=== PATIENT | female | born 1955 | race Caucasian/White ===

== ENCOUNTER 2016-07-19 21:00 | Observation (INO) | payer BC ==
[2016-07-19] MEDS ORDERED: ASPIRIN 81 MG CHEW PO STA (22:31)
[2016-07-19] MEDS ORDERED: NITROGLYCERIN OINT 1 INCH/GM PACKET TOPICAL STA (22:31)
--- NOTE | 2016-07-19 22:34 | ED ---
General Adult HPI - General Chief complaint: Chest Pain Stated complaint: SOB Time Seen by Provider: 07/19/16 21:25 Source: patient, RN notes reviewed Mode of arrival: wheelchair Limitations: no limitations - History of Present Illness Initial comments: This is a 60-year-old female who presents to the emergency department with past medical history significant for sarcoidosis and high cholesterol. Patient states yesterday she was moving a lot of furniture she woke up this morning with a heaviness on her chest with some radiation of the pain to both of her shoulders. Patient states there is no movement that she can do to make it worse per patient states she's very short of breath she feels as though she can only get half breath. Patient denies diaphoresis or nausea. Patient states in the mid afternoon the pain seemed to subside a little so she didn't want to come to the hospital but the pain is since gotten worse in the heaviness is worse. Patient denies any fever chills or cough. Patient states he feels as though her lungs are filled with fluid. Patient states that heaviness continues to persist at this time. - Related Data Home Medications Medication Instructions Recorded Confirmed Ascorbic Acid [Vitamin C] 1,000 mg PO DAILY 07/19/16 07/19/16 Atorvastatin Calcium [Lipitor] 10 mg PO DAILY 07/19/16 07/19/16 Calcium Polycarbophil [Fibercon] 625 mg PO DAILY 07/19/16 07/19/16 Cholecalciferol [Vitamin D3] 1,000 unit PO DAILY 07/19/16 07/19/16 Cyanocobalamin (Vitamin B-12) 1,000 mcg PO DAILY 07/19/16 07/19/16 [Vitamin B-12] Levothyroxine Sodium [Synthroid] 75 mcg PO DAILY 07/19/16 07/19/16 Multivitamins, Thera [Multivitamin 1 tab PO DAILY 07/19/16 07/19/16 (formulary)] Allergies Allergy/AdvReac Type Severity Reaction Status Date / Time No Known Allergies Allergy Verified 07/19/16 23:03 Review of Systems ROS Statement: Those systems with pertinent positive or pertinent negative responses have been documented in the HPI. ROS Other: All systems not noted in ROS Statement are negative. Past Medical History Past Medical History: Skin Disorder, Thyroid Disorder Additional Past Medical History / Comment(s): endocarditis 2010, CELLULITIS LT LEG 2012, sarcoidosis, History of Any Multi-Drug Resistant Organisms: None Reported Past Surgical History: Breast Surgery Additional Past Surgical History / Comment(s): 1995 BREAST REDUCTION. Past Anesthesia/Blood Transfusion Reactions: No Reported Reaction Past Psychological History: No Psychological Hx Reported Additional Psychological History / Comment(s): She relates that she is a lifelong nonsmoker no significant alcohol use is related. No significant travels. No experience. She denies animal exposures. She lives in [place] and [place]. The [place] home in which they stay is 2 spaces. The large space is rented mostly by [employer]. The patient herself has had no travel except to [place]. And is unaware of any ill contacts. Smoking Status: Never smoker Past Alcohol Use History: Occasional Past Drug Use History: None Reported - Past Family History Mother Family Medical History: Hypertension Father History Unknown: Yes Family Medical History: Diabetes Mellitus Additional Family Medical History / Comment(s): pre-diabetic 82 years old. General Exam - General Exam Comments Initial Comments: GENERAL: Patient is well-developed and well-nourished. Patient is nontoxic and well- hydrated and is in mild distress. ENT: Neck is soft and supple. No significant lymphadenopathy is noted. Oropharynx is clear. Moist mucous membranes. Neck has full range of motion without eliciting any pain. EYES: The sclera were anicteric and conjunctiva were pink and moist. Extraocular movements were intact and pupils were equal round and reactive to light. Eyelids were unremarkable. PULMONARY: Unlabored respirations. Good breath sounds bilaterally. No audible rales rhonchi or wheezing was noted. CARDIOVASCULAR: There is a regular rate and rhythm without any murmurs gallops or rubs. ABDOMEN: Soft and nontender with normal bowel sounds. No palpable organomegaly was noted. There is no palpable pulsatile mass. SKIN: Skin is clear with no lesions or rashes and otherwise unremarkable. NEUROLOGIC: Patient is alert and oriented x3. Cranial nerves II through XII are grossly intact. Motor and sensory are also intact. Normal speech, volume and content. Symmetrical smile. MUSCULOSKELETAL: Normal extremities with adequate strength and full range of motion. No lower extremity swelling or edema. No calf tenderness. LYMPHATICS: No significant lymphadenopathy is noted PSYCHIATRIC: Normal psychiatric evaluation. Normal interpersonal interactions appears functionally intact in deals appropriately with others. No signs of depression. No signs of anxiety. Limitations: no limitations Course Vital Signs 07/19/16 07/19/16 21:07 22:49 Temperature 99.7 F H Pulse Rate 87 83 Respiratory 16 18 Rate Blood Pressure 134/73 131/61 O2 Sat by Pulse 95 97 Oximetry Medical Decision Making - Medical Decision Making EKG shows normal sinus rhythm at 84 bpm TX interval is 150 QRS is 86 QT interval 380 QTC is 449. Patient's EKG shows no ST segment elevation or depression or T-wave abdomen is noted. Chest x-ray shows no acute abnormality Patient continues to have chest pain after aspirin and Nitropaste to start the patient on heparin because of the diagnosis of unstable angina. I spoke with Dr. Mccoy admitted the patient I wrote admitting orders. Continue the heparin and aspirin and Nitropaste on the floor. - Lab Data Result diagrams: 07/19/16 22:45 07/19/16 22:45 Lab Results 07/19/16 07/19/16 07/19/16 Range/Units 22:45 22:45 22:45 WBC 10.2 (3.8-10.6) k/uL RBC 4.11 (3.80-5.40) m/uL Hgb 13.8 (11.4-16.0) gm/dL Hct 38.5 (34.0-46.0) % MCV 93.8 (80.0-100.0) fL MCH 33.5 (25.0-35.0) pg MCHC 35.7 (31.0-37.0) g/dL RDW 12.9 (11.5-15.5) % Plt Count 240 (150-450) k/uL Neutrophils % 88 % Lymphocytes % 6 % Monocytes % 4 % Eosinophils % 1 % Basophils % 0 % Neutrophils # 8.9 H (1.3-7.7) k/uL Lymphocytes # 0.6 L (1.0-4.8) k/uL Monocytes # 0.4 (0-1.0) k/uL Eosinophils # 0.1 (0-0.7) k/uL Basophils # 0.0 (0-0.2) k/uL PT (9.0-12.0) sec INR (<1.1) APTT (22.0-30.0) sec Sodium 141 (137-145) mmol/L Potassium 4.4 (3.5-5.1) mmol/L Chloride 104 (98-107) mmol/L Carbon Dioxide 25 (22-30) mmol/L Anion Gap 12 mmol/L BUN 14 (7-17) mg/dL Creatinine 0.70 (0.52-1.04) mg/dL Est GFR (MDRD) Af Amer >60 (>60 ml/min/1.73 sqM) Est GFR (MDRD) Non-Af >60 (>60 ml/min/1.73 sqM) Glucose 126 H (74-99) mg/dL Calcium 9.9 (8.4-10.2) mg/dL Magnesium 1.8 (1.6-2.3) mg/dL Total Bilirubin 0.9 (0.2-1.3) mg/dL AST 26 (14-36) U/L ALT 43 (9-52) U/L Alkaline Phosphatase 92 (38-126) U/L Total Creatine Kinase 86 (30-135) U/L CK-MB (CK-2) 0.9 (0.0-2.4) ng/mL CK-MB (CK-2) Rel Index 1.0 Troponin I <0.012 (0.000-0.034) ng/mL Total Protein 7.6 (6.3-8.2) g/dL Albumin 4.4 (3.5-5.0) g/dL /09/27 Range/Units 22:45 WBC (3.8-10.6) k/uL RBC (3.80-5.40) m/uL Hgb (11.4-16.0) gm/dL Hct (34.0-46.0) % MCV (80.0-100.0) fL MCH (25.0-35.0) pg MCHC (31.0-37.0) g/dL RDW (11.5-15.5) % Plt Count (150-450) k/uL Neutrophils % % Lymphocytes % % Monocytes % % Eosinophils % % Basophils % % Neutrophils # (1.3-7.7) k/uL Lymphocytes # (1.0-4.8) k/uL Monocytes # (0-1.0) k/uL Eosinophils # (0-0.7) k/uL Basophils # (0-0.2) k/uL PT 10.5 (9.0-12.0) sec INR 1.0 (<1.1) APTT 29.7 (22.0-30.0) sec Sodium (137-145) mmol/L Potassium (3.5-5.1) mmol/L Chloride (98-107) mmol/L Carbon Dioxide (22-30) mmol/L Anion Gap mmol/L BUN (7-17) mg/dL Creatinine (0.52-1.04) mg/dL Est GFR (MDRD) Af Amer (>60 ml/min/1.73 sqM) Est GFR (MDRD) Non-Af (>60 ml/min/1.73 sqM) Glucose (74-99) mg/dL Calcium (8.4-10.2) mg/dL Magnesium (1.6-2.3) mg/dL Total Bilirubin (0.2-1.3) mg/dL AST (14-36) U/L ALT (9-52) U/L Alkaline Phosphatase (38-126) U/L Total Creatine Kinase (30-135) U/L CK-MB (CK-2) (0.0-2.4) ng/mL CK-MB (CK-2) Rel Index Troponin I (0.000-0.034) ng/mL Total Protein (6.3-8.2) g/dL Albumin (3.5-5.0) g/dL Critical Care Time Critical Care Time: Yes Total Critical Care Time: 35 Disposition Clinical Impression: Unstable angina pectoris Disposition: ADMITTED IP TO THIS HOSP Referrals: Levy Larry DO [Primary Care Provider] - 1-2 days Time of Disposition: 23:56
[2016-07-19 22:58] LABS: Basophils % (A) 0 %; CH 33.3; CHCM 35.6; Eosinophils # (A) 0.1 k/uL (0-0.7); Eosinophils % (A) 1 %; HCT 38.5 % (34.0-46.0); HDW 2.63; HGB 13.8 gm/dL (11.4-16.0); Luc % (Auto) 1; Lymphocytes # (A) 0.6 k/uL (1.0-4.8); Lymphocytes % (A) 6 %; MCH 33.5 pg (25.0-35.0); MCHC 35.7 g/dL (31.0-37.0); MCV 93.8 fL (80.0-100.0); Mean Platelet Volume 7.7; Monocytes # (A) 0.4 k/uL (0-1.0); Monocytes % (A) 4 %; Neutrophils # (A) 8.9 k/uL (1.3-7.7); Neutrophils % (A) 88 %; RBC 4.11 m/uL (3.80-5.40); RDW 12.9 % (11.5-15.5); WBC 10.2 k/uL (3.8-10.6); WBC (Perox) 10.48
[2016-07-19 23:07] LABS: Partial Thromboplastin Time 29.7 sec (22.0-30.0); Prothrombin Time 10.5 sec (9.0-12.0)
[2016-07-19 23:08] LABS: ALT 43 U/L (9-52); AST 26 U/L (14-36); Alkaline Phosphatase 92 U/L (38-126); Anion Gap 12 mmol/L; Blood Urea Nitrogen 14 mg/dL (7-17); Calcium 9.9 mg/dL (8.4-10.2); Carbon Dioxide 25 mmol/L (22-30); Chloride 104 mmol/L (98-107); Glucose 126 mg/dL (74-99); Magnesium 1.8 mg/dL (1.6-2.3); Non-African American GFR(MDRD) >60 (>60 ml/min/1.73 sqM); Potassium 4.4 mmol/L (3.5-5.1); Sodium 141 mmol/L (137-145); Total Bilirubin 0.9 mg/dL (0.2-1.3); Total Protein 7.6 g/dL (6.3-8.2)
[2016-07-19 23:16] LABS: Creatine Kinase 86 U/L (30-135)
[2016-07-19 23:29] LABS: Creatine Kinase MB 0.9 ng/mL (0.0-2.4); Troponin I <0.012 ng/mL (0.000-0.034)
--- NOTE | 2016-07-19 23:40 | XR ---
EXAM: XR Chest, 1 View CLINICAL HISTORY: Reason: Chest Pain TECHNIQUE: Frontal view of the chest. COMPARISON: 08/15/15 two-view chest, 01/03/[address] FINDINGS: Lungs: Somewhat more shallow inspiratory effort with linear opacities suggesting bronchovascular crowding and atelectasis. No superimposed infiltrate. Pleural space: No pleural effusion or pneumothorax. Heart: Heart size is stable and within normal limits. Mediastinum: Stable. Note that multifocal adenopathy visible on the previous CT is not well assessed by this exam. Bones/joints: No acute osseous abnormality. Other findings: Again seen is an azygos fissure. IMPRESSION: Hypoventilatory changes without new superimposed acute process seen, as above.
[2016-07-19] MEDS ORDERED: HEPARIN SODIUM,PORCINE/D5W PMX 25,000 UNIT in DEXTROSE/WATER 1 500ML.BAG IV SCH (23:45)
[2016-07-19] MEDS ORDERED: HEPARIN SODIUM,PORCINE 5,000 UNIT/ML 1 ML VIAL IV ONE (23:53)
[2016-07-19] MEDS ORDERED: NITROGLYCERIN SL TABS 0.4 MG TAB SUBLINGUAL PRN (23:57)
[2016-07-20] MEDS ORDERED: SODIUM CHLORIDE 0.9% 500 ML IV ONE (00:30)
[2016-07-20] MEDS ORDERED: MORPHINE SULFATE 10 MG/ML SYRINGE IVP STA (00:41)
[2016-07-20 01:59] VITALS: RESP 16
[2016-07-20] MEDS: NITROGLYCERIN OINT 1 INCH/GM PACKET TOPICAL SCH ×2 (02:14→06:23)
[2016-07-20] MEDS: ACETAMINOPHEN TAB 325 MG TAB PO PRN ×2 (03:14→07:35)
[2016-07-20 06:19] LABS: Cholesterol 174 mg/dL (<200); HDL Cholesterol 56 mg/dL (40-60); Triglycerides 117 mg/dL (<150)
[2016-07-20 06:21] LABS: Creatine Kinase 64 U/L (30-135)
[2016-07-20 06:34] LABS: Creatine Kinase MB 0.6 ng/mL (0.0-2.4); Troponin I <0.012 ng/mL (0.000-0.034)
[2016-07-20 08:13] VITALS: BP 107/57; PULSE 77; TEMP 98
[2016-07-20] MEDS ORDERED: LEVOTHYROXINE 75 MCG TAB PO SCH (09:00)
[2016-07-20] MEDS ORDERED: ASPIRIN 325 MG TAB PO SCH (09:00)
[2016-07-20] MEDS ORDERED: ENOXAPARIN 40 MG/0.4 ML SYRINGE SQ SCH (09:00)
[2016-07-20] MEDS ORDERED: ATORVASTATIN 10 MG TAB PO SCH (09:00)
--- NOTE | 2016-07-20 09:06 | CONS ---
DATE OF CONSULTATION: CHIEF COMPLAINT: Chest pain. Karma is a 60-year-old lady with history of pulmonary sarcoidosis and hypothyroidism, and dyslipidemia who presented to the hospital complaining of chest pain. Her brother was moving home. She went to help move the furniture and developed chest discomfort. She describes it at a sharp precordial unassociated with diaphoresis and unrelated to exertion. It gets worse when she takes a deep breath. It clearly seems musculoskeletal. Since admission she has done well. EKG shows sinus rhythm with evidence of prior inferior wall myocardial infarction. Cardiac enzymes have all come back negative. Her LDL cholesterol is 95. Hemoglobin is 13.8. Potassium is 4.4. Creatinine 0.7. Patient's chest discomfort is atypical and probably musculoskeletal in origin. Past medical history is negative for hypertension, diabetes, dyslipidemia. Current medications include vitamin C, Synthroid, B12, Lipitor and vitamin D3. ALLERGIES: There are no known drug allergies. Family history is negative for premature coronary artery disease. Social history is negative for current smoking, EtOH abuse or drug abuse. REVIEW OF SYSTEMS: HEENT: Unremarkable. CARDIAC: As described above. RESPIRATORY: Negative. GI: Negative. GENITOURINARY: Negative. ALLERGY/IMMUNOLOGY: Negative. SKIN: Negative. MUSCULOSKELETAL: Significant for arthritis. PSYCHOSOCIAL: Negative. ENDOCRINE: Negative. HEMATOLOGIC: Negative. DERMATOLOGIC: Negative. CONSTITUTIONAL: Negative. ONCOLOGICAL: Negative. The rest of the system review is not relevant. On exam, comfortable at rest. Vital signs are stable. There is no jugular venous distention. Carotid upstroke is normal. There is no bruit. Chest exam reveals good air entry bilaterally. Heart exam reveals first and second heart sounds. No gallop. No murmur, no rub. Abdomen is soft, nontender. Exam of the extremities did not reveal any edema. Peripheral pulses are felt. Labs show that the hemoglobin is 13.8, platelet count is 240. Potassium is 4.4. Creatinine is 0.7. Two sets of tropes are negative. LDL cholesterol is 95. ASSESSMENT: 1. Chest pain, atypical, probably musculoskeletal in origin. 2. History of dyslipidemia. 3. Family history of valvular heart disease. PLAN: I am going to stop the heparin. Obtain a D-dimer, echocardiogram. If this workup is benign, she can be discharged home and arrange for an outpatient stress echo.
--- NOTE | 2016-07-20 11:43 | ECHOF ---
Referral Reason:chest pain MEASUREMENTS -------- HEIGHT: 170.2 cm WEIGHT: 93.9 kg BP: 107/57 RVIDd: 3.2 cm (< 3.3) IVSd: 1.1 cm (0.6 - 1.1) LVIDd: 4.0 cm (3.9 - 5.3) LVPWd: 1.2 cm (0.6 - 1.1) IVSs: 1.7 cm LVIDs: 2.6 cm LVPWs: 1.7 cm LA Diam: 3.6 cm (2.7 - 3.8) LAESV Index (A-L): 19.04 ml/m Ao Diam: 2.8 cm (2.0 - 3.7) AV Cusp: 2.3 cm (1.5 - 2.6) MV EXCURSION: 17.007 mm (> 18.000) MV EF SLOPE: 70 mm/s (70 - 150) EPSS: 0.2 cm MV E Eddi: 0.90 m/s MV DecT: 190 ms MV A Eddi: 1.00 m/s MV E/A Ratio: 0.90 RAP: 5.00 mmHg RVSP: 18.48 mmHg FINDINGS -------- Sinus rhythm. This was a technically adequate study. The left ventricular size is normal. There is borderline concentric left ventricular hypertrophy. Overall left ventricular systolic function is normal with, an EF between 60 - 65 %. The right ventricle is normal in size. Normal LA size by volume 22+/-6 ml/m2. The right atrium is normal in size. The aortic valve is trileaflet and appears structurally normal. Mild mitral annular calcification present. Mild tricuspid regurgitation present. Right ventricular systolic pressure is normal at < 35 mmHg. The pulmonic valve was not well visualized. The aortic root, ascending aorta and aortic arch are normal. Normal inferior vena cava with normal inspiratory collapse consistent with estimated right atrial pressure of 5 mmHg. The pericardium is normal. CONCLUSIONS -------- 1. Sinus rhythm. 2. Mild mitral annular calcification present. 3. Mild tricuspid regurgitation present. 4. Right ventricular systolic pressure is normal at < 35 mmHg. 5. The pulmonic valve was not well visualized. 6. The aortic root, ascending aorta and aortic arch are normal. 7. Normal inferior vena cava with normal inspiratory collapse consistent with estimated right atrial pressure of 5 mmHg. 8. The pericardium is normal. 9. This was a technically adequate study. 10. The left ventricular size is normal. 11. There is borderline concentric left ventricular hypertrophy. 12. Overall left ventricular systolic function is normal with, an EF between 60 - 65 %. 13. The right ventricle is normal in size. 14. Normal LA size by volume 22+/-6 ml/m2. 15. The right atrium is normal in size. 16. The aortic valve is trileaflet and appears structurally normal. DAIRY INSPECTOR: Anel Escamilla RDCS
--- NOTE | 2016-07-20 18:34 | HP ---
H&P AND DISCHARGE SUMMARY DATE OF ADMISSION: 07/19/2016 PRESENTING COMPLAINT: Chest pressure. HISTORY OF PRESENTING COMPLAINT: This is a very pleasant 60-year-old patient, known to me from a prior admission. Patient's chronic stable medical conditions include hypothyroid, sarcoidosis. Patient does follow with Dr. Vázquez from [facility]. She has finished a course of prednisone and methotrexate. Patient presented with her . Patient did move furniture around; now presented with pressure in the center of the chest, some going down to the shoulder, some dizziness, some sweating. It lasted for a good 4 hours. Patient is tender in the front part of the chest when she pushes the chest. Patient did get nitroglycerin in the ER; it really did not help. Patient was admitted to rule out a cardiac cause. REVIEW OF SYSTEMS: CONSTITUTIONAL: None. HEENT: None. RESPIRATORY: None. CARDIOVASCULAR: As above. GASTROINTESTINAL: None. GENITOURINARY: None. MUSCULOSKELETAL: As above. DERMATOLOGICAL: None. HEMATOLOGIC: None. LYMPHATICS: None. PSYCHIATRY: None. NEUROLOGICAL: None. PAST MEDICAL HISTORY: 1. Hypothyroid. 2. Endocarditis. 3. Sarcoidosis. PAST SURGICAL HISTORY: 1. Breast surgery. 2. Breast reduction. 3. Lung biopsy in 2016. SOCIAL HISTORY: Patient lives between [place] and [place]. No smoking. Alcohol occasionally. FAMILY HISTORY: Hypertension. HOME MEDICATIONS: 1. Multivitamin 1 tablet p.o. daily. 2. Synthroid 75 mcg p.o. daily. 3. Vitamin D3 1000 units p.o. daily. 4. FiberCon 625 mg p.o. daily. 5. Lipitor 10 mg p.o. daily. ALLERGIES: NONE. On examination, temperature 98, pulse 77, respiration 16, blood pressure 107/57, pulse ox 96% on room air. GENERAL APPEARANCE: Well built; BMI of 32.4. Lying in bed, not in distress. EYES: Pupils equal. Conjunctivae normal. HEENT: External appearance of nose and ears normal. Oral cavity normal. NECK: JVD not raised. Mass not palpable. RESPIRATORY: Effort normal. Lungs are clear. CARDIOVASCULAR: First and second sounds normal. No edema. ABDOMEN: Soft, nontender. Liver and spleen not palpable. LYMPHATIC: No lymph node palpable in neck or axillae. PSYCHIATRY: Alert and oriented x3. Mood and affect normal. NEUROLOGICAL: Pupils equal. Cranial nerves grossly intact. Power and sensation grossly intact. MUSCULOSKELETAL: Patient has musculoskeletal tenderness at the costochondral junction. INVESTIGATIONS: White count 10.2, hemoglobin 13.8, potassium 4.4. Troponin x2 negative. LDL 95. EKG normal sinus rhythm. Two-D echo shows preserved LV function, EF 60% to 65%. ASSESSMENT: 1. Anterior chest wall pain with tenderness in the costochondral junction, likely musculoskeletal. Rule out a cardiac cause. 2. Obesity; body mass index of 32.4. 3. Hypothyroidism. 4. Sarcoidosis, in remission. PLAN: Cardiology was consulted, who did a 2-D echo. Per Dr. Peggy Cox, patient can be discharged. Outpatient stress test to be done. Care was discussed with the patient and her . Questions were answered. DISCHARGE MEDICATIONS: 1. Vitamin C 1000 mg p.o. daily. 2. Lipitor 10 mg p.o. daily. 3. FiberCon 625 p.o. daily. 4. Vitamin D3 1000 units p.o. daily. 5. Vitamin B12 1000 mcg p.o. daily. 6. Synthroid 75 mcg p.o. daily. 7. Multivitamin 1 tablet p.o. daily. 8. Aspirin 81 mg a day. 9. Nitrostat 0.4 sublingually q.5 p.r.n. Follow up with Dr. Larry in a week. Follow up with Dr. Peggy Cox in one week. PHYSICAL EXAMINATION: LUNGS: Clear. CARDIOVASCULAR: First and second sounds normal. Tenderness at the costochondral junction.
== END 2016-07-20 10:21 | disposition home or self-care (01) ==
LOC: EC 21:00 → 3OBS 23:57
PROVIDERS: ADMIT Hospitalist; ATTEND Hospitalist
DX: R07.89 Other chest pain (principal); R07.2 Precordial pain; E78.5 Hyperlipidemia, unspecified; E78.00 Pure hypercholesterolemia, unspecified; E03.9 Hypothyroidism, unspecified; D86.9 Sarcoidosis, unspecified; E66.9 Obesity, unspecified; Z68.32 Body mass index [BMI] 32.0-32.9, adult; Z79.899 Other long term (current) drug therapy; Z82.49 Family history of ischemic heart disease and other diseases of the circulatory system; Z83.3 Family history of diabetes mellitus
CPT/HCPCS: 99291; 96374 ×2; 96376 ×2; 96375; 36415; 93005; 93306; 85379; 80061; 80053; 82550 ×2; 82553 ×2; 83735; 84484 ×2; 85025; 85610; 85730 ×2; 71020; G0378 ×2; J1644 ×2; J2270

== ENCOUNTER → 2016-12-25 | Outpatient (CLI) | payer BC ==
--- NOTE | 2016-12-25 08:56 | CT ---
EXAMINATION TYPE: CT chest w con DATE OF EXAM: 12/25/2016 COMPARISON: 01/03/2016 and 09/13/2015 HISTORY: 61-year-old female Follow up to sarcoidosis TECHNIQUE: Contiguous axial scanning of the chest after the administration of 100 mL of Omnipaque 300 . Coronal/sagittal reconstructions performed. CT DLP: 807mGycm. Automatic exposure control utilized for a dose reduction. FINDINGS: The heart is normal size without pericardial effusion. Aorta is normal caliber with conventional arch vessel branching anatomy. Interval improvement in previous mediastinal lymphadenopathy including lymph nodes in the paratrachea l region, left tracheobronchial angle, AP window, and subcarinal region. Previous borderline to mildl y enlarged bilateral hilar lymph nodes also show interval resolution. No residual suspicious lymphade nopathy is seen. Strandy atelectasis at the inferior lingula. Normal variant azygos fissure. No consolidation or pleur al effusion. No definite findings of interstitial lung disease. Small hiatal hernia. Visualized upper abdomen shows no gross abnormality. Bones: No osseous destructive process. IMPRESSION: 1. Interval treatment response with resolution of previous mediastinal and hilar lymphadenopathy. 2. No specific findings of interstitial lung disease. 3. Small hiatal hernia.
== END | disposition home or self-care (01) ==
LOC: RADCTMAIN 08:05
PROVIDERS: ATTEND Internal Medicine Sleep Medicine
DX: K44.9 Diaphragmatic hernia without obstruction or gangrene (principal)
CPT/HCPCS: 71260; Q9967

== ENCOUNTER → 2016-12-25 | Outpatient (CLI) | payer BC ==
--- NOTE | 2016-12-26 10:54 | MM ---
Reason for exam: screening (asymptomatic). Last mammogram was performed 1 year ago. History: Patient is postmenopausal. Reduction of the left breast. Reduction of the right breast. MG 3D Screening Mammo W/Cad Bilateral CC and MLO view(s) were taken. Prior study comparison: December 22, 2015, bilateral MG 3d screening mammo w/cad. December 09, 2014, bilateral MG 3d screening mammo w/cad. July 30, 2011, CAD bilateral diagnostic mammogram. The breast tissue is heterogeneously dense. This may lower the sensitivity of mammography. Finding: There is a 7 mm circumscribed oval mass in the upper outer quadrant, middle position of the right breast seen best on CC slice 45/91. New finding since December 22, 2015, December 09, 2014, and July 30, 2011. ASSESSMENT: Incomplete: need additional imaging evaluation, BI-RAD 0 RECOMMENDATION: Special view mammogram and ultrasound of the right breast. [facility] will attempt to contact patient to return for supplemental views and ultrasound.
== END | disposition home or self-care (01) ==
LOC: RADMAMWWP 07:44
PROVIDERS: ATTEND Obstetrics & Gynecology
DX: Z12.31 Encounter for screening mammogram for malignant neoplasm of breast (principal)
CPT/HCPCS: 77063; G0202

== ENCOUNTER → 2016-12-31 | Outpatient (CLI) | payer BC ==
--- NOTE | 2016-12-31 08:28 | MM ---
Reason for exam: additional evaluation requested from abnormal screening. Last mammogram was performed less than 1 month ago. History: Patient is postmenopausal. Reduction of the left breast. Reduction of the right breast. Physical Findings: Nurse did not find any significant physical abnormalities on exam. MG 3D Work Up W/Cad RT LM and spot compression CC view(s) were taken of the right breast. Prior study comparison: December 25, 2016, bilateral MG 3d screening mammo w/cad. December 22, 2015, bilateral MG 3d screening mammo w/cad. There are scattered fibroglandular densities. The 7mm nodular asymmetry laterally at a middle depthe persists on spot 3D. This is isodense and appears circumscribed. This may correspond and appears to a subtle density dectected on 3D images in the superior aspect. These results were verbally communicated with the patient and result sheet given to the patient on 12/31/16. ASSESSMENT: Incomplete: need additional imaging evaluation, BI-RAD 0 RECOMMENDATION: Ultrasound of the right breast.
--- NOTE | 2016-12-31 08:32 | USB ---
Reason for exam: additional evaluation requested from abnormal screening. History: Patient is postmenopausal. Reduction of the left breast. Reduction of the right breast. US Breast Workup RT Right breast ultrasound includes all four quadrants, the retroareolar region and axilla. Finding demonstrates no cystic or solid lesion seen. Particular attention to the upper outer quadrant. This area should be reassessed in 6 months. These results were verbally communicated with the patient and result sheet given to the patient on 12/31/16. ASSESSMENT: Probably benign, BI-RAD 3 RECOMMENDATION: Follow-up diagnostic mammogram of the right breast in 6 months.
== END | disposition home or self-care (01) ==
LOC: RADMAMWWP 06:47
PROVIDERS: ATTEND Obstetrics & Gynecology
DX: R92.8 Other abnormal and inconclusive findings on diagnostic imaging of breast (principal)
CPT/HCPCS: 76641; G0206; G0279

== ENCOUNTER → 2017-07-02 | Outpatient (CLI) | payer BC ==
--- NOTE | 2017-07-02 09:49 | MM ---
Reason for exam: follow-up at short interval from prior study. Last mammogram was performed 6 months ago. History: Patient is postmenopausal. Reduction of the left breast. Reduction of the right breast. Physical Findings: Nurse did not find any significant physical abnormalities on exam. MG 3D Diag Mammo W/Cad RT CC, MLO, and ML view(s) were taken of the right breast. Prior study comparison: December 31, 2016, right breast MG 3d work up w/cad RT. December 25, 2016, bilateral MG 3d screening mammo w/cad. The breast tissue is heterogeneously dense. This may lower the sensitivity of mammography. No significant new findings when compared with previous films. These results were verbally communicated with the patient and result sheet given to the patient on 07/02/17. ASSESSMENT: Benign, BI-RAD 2 RECOMMENDATION: Return to routine screening mammogram schedule for both breasts. Back on schedule.
== END | disposition home or self-care (01) ==
LOC: RADMAMWWP 07:46
PROVIDERS: ATTEND Family Medicine
DX: R92.8 Other abnormal and inconclusive findings on diagnostic imaging of breast (principal)
CPT/HCPCS: 77061; 77065

== ENCOUNTER → 2018-12-10 | Outpatient (CLI) | payer OTHER ==
--- NOTE | 2018-12-12 12:26 | MM ---
Reason for exam: screening (asymptomatic). Last mammogram was performed 1 year and 5 months ago. History: Patient is postmenopausal. Reduction of the left breast. Reduction of the right breast. Physical Findings: A clinical breast exam by your physician is recommended on an annual basis and results should be correlated with mammographic findings. MG 3D Screening Mammo W/Cad Bilateral CC and MLO view(s) were taken. Prior study comparison: July 02, 2017, right breast MG 3d diag mammo w/cad RT. December 31, 2016, right breast MG 3d work up w/cad RT. There are scattered fibroglandular densities. Scattered asymmetric densities are unchanged. No significant changes when compared with prior studies. ASSESSMENT: Negative, BI-RAD 1 RECOMMENDATION: Routine screening mammogram of both breasts in 1 year.
== END | disposition home or self-care (01) ==
LOC: RADMAMWWP 11:37
PROVIDERS: ATTEND Family Medicine
DX: Z12.31 Encounter for screening mammogram for malignant neoplasm of breast (principal)
CPT/HCPCS: 77063; 77067

== ENCOUNTER → 2019-12-30 | Outpatient (CLI) | payer OTHER | END | disposition home or self-care (01) | LOC: LABWHC1 12:38 | PROVIDERS: ATTEND Family Medicine | DX: R51.9 Headache, unspecified (principal) | CPT/HCPCS: 87502; U0003; C9803 ==

== ENCOUNTER 2020-01-09 15:17 | Emergency (ER) | payer OTHER ==
[2020-01-09 16:40] VITALS: PULSE 100; RESP 21
--- NOTE | 2020-01-09 16:42 | ED ---
General Adult HPI - General Chief complaint: Fever Stated complaint: Covid Symptoms Time Seen by Provider: 01/09/20 16:23 Source: patient, RN notes reviewed, old records reviewed Mode of arrival: ambulatory Limitations: no limitations - History of Present Illness Initial comments: 64-year-old female with history of sarcoidosis, not currently on any medication or injection presenting for evaluation of coronavirus, fever. Patient's tested positive for approximately 10 days ago, she had a test at that time although she was asymptomatic this test was negative. She developed symptoms approximately 4 days ago. She has had fever up to 103 and has been taking Tylenol and Motrin. She reports only mild cough. Initially reporting no dyspnea however she does state that she has some very mild dyspnea with exertion. No vomiting. No chest pain. Patient has been monitoring her pulse ox at home and states it has been around 96. Her is currently on home oxygen and has been diagnosed with coronavirus and they are both monitoring there oxygen levels at home. - Related Data Home Medications Medication Instructions Recorded Confirmed Ascorbic Acid [Vitamin C] 1,000 mg PO DAILY 07/19/16 07/19/16 Atorvastatin Calcium [Lipitor] 10 mg PO DAILY 07/19/16 07/19/16 Cholecalciferol [Vitamin D3 (25 1,000 unit PO DAILY 07/19/16 07/19/16 Mcg = 1000 Iu)] Cyanocobalamin (Vitamin B-12) 1,000 mcg PO DAILY 07/19/16 07/19/16 [Vitamin B-12] Levothyroxine Sodium [Synthroid] 75 mcg PO DAILY 07/19/16 07/19/16 Multivitamins, Thera [Multivitamin 1 tab PO DAILY 07/19/16 07/19/16 (formulary)] calcium polycarbophiL [Fibercon] 625 mg PO DAILY 07/19/16 07/19/16 Previous Rx's Medication Instructions Recorded Aspirin 81 mg PO DAILY #1 chewable 07/20/16 Nitroglycerin Sl Tabs [Nitrostat] 0.4 mg SUBLINGUAL Q5M PRN #25 tab 07/20/16 Allergies Allergy/AdvReac Type Severity Reaction Status Date / Time No Known Allergies Allergy Verified 01/09/20 15:22 Review of Systems ROS Statement: Those systems with pertinent positive or pertinent negative responses have been documented in the HPI. ROS Other: All systems not noted in ROS Statement are negative. Past Medical History Past Medical History: Skin Disorder, Thyroid Disorder Additional Past Medical History / Comment(s): endocarditis 2010, CELLULITIS LT LEG 2012, sarcoidosis, History of Any Multi-Drug Resistant Organisms: None Reported Past Surgical History: Breast Surgery Additional Past Surgical History / Comment(s): 1995 BREAST REDUCTION, lung bx in 11/2015 for sarcoidosis Past Anesthesia/Blood Transfusion Reactions: No Reported Reaction Past Psychological History: No Psychological Hx Reported Smoking Status: Never smoker Past Alcohol Use History: Rare Past Drug Use History: None Reported - Past Family History Mother Family Medical History: Hypertension Father History Unknown: Yes Family Medical History: Diabetes Mellitus Additional Family Medical History / Comment(s): pre-diabetic 82 years old. General Exam Limitations: no limitations General appearance: alert, in no apparent distress Head exam: Present: atraumatic, normocephalic Eye exam: Present: normal appearance, PERRL Neck exam: Present: normal inspection. Absent: tenderness, meningismus Respiratory exam: Absent: respiratory distress, wheezes, rhonchi Cardiovascular Exam: Present: regular rate, normal rhythm GI/Abdominal exam: Present: soft. Absent: distended, tenderness, guarding Neurological exam: Present: alert, oriented X3, CN II-XII intact. Absent: motor sensory deficit Psychiatric exam: Present: normal affect, normal mood Skin exam: Present: warm, dry, intact. Absent: cyanosis, diaphoretic Course Vital Signs 01/09/20 15:22 Temperature 99.7 F H Pulse Rate 107 H Respiratory 18 Rate Blood Pressure 171/93 O2 Sat by Pulse 96 Oximetry Medical Decision Making - Medical Decision Making 64-year-old female with known exposure to her who has tested positive for coronavirus presenting with fever and mild dyspnea. Patient is well- appearing with normal oxygenation. She is febrile she had taken antipyretics at home approximately 11 AM. She is due for dose at this time. She does have the capacity monitor her pulse ox at home she is a higher risk patient given her age, and comorbidity of sarcoidosis. But she is very aware of her symptoms and is closely monitor and pulse oximetry at home. She is given strict return parameters and will repeat present for evaluation with any worsening or changing symptoms. Disposition Clinical Impression: COVID-19 Disposition: HOME SELF-CARE Condition: Good Instructions (If sedation given, give patient instructions): Fever in Adults (ED), Viral Syndrome (ED), Upper Respiratory Infection (ED) Additional Instructions: You have coronavirus please closely monitor your breathing, return with any worsening breathing issues, monitoring her pulse ox at home. Return to the emergency department for reevaluation with any worsening or changing symptoms. Please quarantined yourself for 14 days. Is patient prescribed a controlled substance at d/c from ED?: No Referrals: Levy Larry DO [Primary Care Provider] - 1-2 days Time of Disposition: 16:36
[2020-01-09 16:43] VITALS: BP 153/88; TEMP 101.5
== END 2020-01-09 16:48 | disposition home or self-care (01) ==
LOC: EC 15:17
DX: U07.1 COVID-19 (principal); D86.9 Sarcoidosis, unspecified; E07.9 Disorder of thyroid, unspecified; Z79.890 Hormone replacement therapy; Z79.899 Other long term (current) drug therapy
CPT/HCPCS: 99283

== ENCOUNTER → 2020-11-24 | Outpatient (CLI) | payer OTHER ==
--- NOTE | 2020-11-25 12:00 | MM ---
Reason for exam: screening (asymptomatic). Last mammogram was performed 1 year and 11 months ago. History: Patient is postmenopausal. Reduction of the left breast. Reduction of the right breast. Physical Findings: A clinical breast exam by your physician is recommended on an annual basis and results should be correlated with mammographic findings. MG 3D Screening Mammo W/Cad Bilateral CC and MLO view(s) were taken. Prior study comparison: December 10, 2018, bilateral MG 3d screening mammo w/cad. July 02, 2017, right breast MG 3d diag mammo w/cad RT. There are scattered fibroglandular densities. No significant changes when compared with prior studies. ASSESSMENT: Benign, BI-RAD 2 RECOMMENDATION: Routine screening mammogram of both breasts in 1 year.
== END | disposition home or self-care (01) ==
LOC: RADMAMWWP 11-23 07:57
PROVIDERS: ATTEND Family Medicine
DX: Z12.31 Encounter for screening mammogram for malignant neoplasm of breast (principal); Z78.0 Asymptomatic menopausal state
CPT/HCPCS: 77063; 77067